=== PATIENT | female | born 1980 | race Caucasian/White ===

== ENCOUNTER 2019-04-29 18:37 | Outpatient (REF) | payer OTHER, SELFPAY ==
[2019-04-29 21:06] LABS: Abs Immature Grans 0.01 k/cumm (0.0-0.09); Absolute Basophil Count 0.05 k/cumm (0.0-0.2); Absolute Lymphocyte Count 2.73 k/cumm (1.2-3.4); Absolute Monocyte Count 0.64 k/cumm (0.11-0.7); Absolute Neutrophil Count 3.58 k/cumm (1.2-6.7); Basophils % 0.7; Eosinophils % 1.4; HCT 38.4 % (36.0-46.0); HGB 13.2 g/dL (12.0-15.5); Immature Grans % 0.1 %; Lymphocytes % 38.4; Mean Corp. HGB Concentration 34.4 g/dL (32.0-36.0); Mean Corpuscular Hemoglobin 32.4 pg (27.0-33.0); Mean Corpuscular Volume 94.3 fL (80-95); Mean Platelet Volume 12.3 fL (8.0-11.0); Neutrophils % 50.4; Platelet Count 290 x1000/uL (130-400); RBC 4.07 m/cumm (4.00-5.20); RBC Distribution Width 12.2 % (11.7-14.6); White Blood Cell Count 7.11 k/cumm (4.4-10.8)
[2019-04-29 21:14] LABS: Iron 100 ug/dL (50-170); Total Iron Binding Capacity 296 ug/dL (250-450); Transferrin Sat 34 % (15-50)
[2019-04-29 21:23] LABS: Anion Gap 9.2 mmol/L (3-11); BUN 12 mg/dL (7-18); CO2 28.8 mmol/L (21.0-32.0); Calcium 8.3 mg/dL (8.5-10.1); Chloride 102 mmol/L (98-107); Glucose 92 mg/dL (74-106); Magnesium 1.8 mg/dL (1.8-2.4); Potassium 3.7 mmol/L (3.5-5.1); Sodium 140 mmol/L (136-145); TSH (W/Ref FT4) 2.07 uIU/mL (0.36-3.74)
== END 2019-04-29 18:57 ==
LOC: NCHCN 18:37
PROVIDERS: Visit Provider Nurse Practitioner Family
DX: Z00.00 Encounter for general adult medical examination without abnormal findings (principal); R53.83 Other fatigue; F41.8 Other specified anxiety disorders; F43.9 Reaction to severe stress, unspecified; G47.9 Sleep disorder, unspecified; J30.2 Other seasonal allergic rhinitis; G47.00 Insomnia, unspecified
CPT/HCPCS: 80048; 83540; 83550; 83735; 84443; 85025

== ENCOUNTER 2020-04-27 16:43 | Outpatient (REF) | payer OTHER, SELFPAY ==
--- NOTE | 2020-04-27 15:30 | SKI_PTH ---
PATIENT: Nayeli Robertson LOC: [facility] U#:[id number] AGE/SX: 40/F ROOM: RE04/27/[address]: Ambrosio Arreola : 1980 BED: DIS: 04/27/2020 SPEC #: [id number] RECD: 04/28/20 12:22 STATUS: ZUNILDA REQ #: [id number] BHASKAR: 04/27/20 15:[address]: Ambrosio Arreola DEPT: Surgical Specimen RECD BY: Arianna Grey ENTERED: 04/28/20 12:23 SP TYPE: SETH GONSALEZ DR: Unknown,Unknown Tissues: 1 - SKIN BIOPSY(SHAVE/PUNCH) Procedures: SKIN LEVEL 4 Comments: [id number]
== END 2020-04-27 16:44 | disposition home or self-care (01) ==
LOC: NCHCN 16:43
PROVIDERS: Visit Provider Family Medicine
DX: L82.0 Inflamed seborrheic keratosis (principal)
CPT/HCPCS: 88305

== ENCOUNTER 2021-05-18 15:05 | Outpatient (REF) | payer OTHER, SELFPAY ==
[2021-05-18 16:18] LABS: Abs Immature Grans 0.01 10^3/uL (0.0-0.06); Absolute Basophil Count 0.02 10^3/uL (0.0-0.2); Absolute Eosinophil Count 0.02 10^3/uL (0.0-0.7); Absolute Lymphocyte Count 1.83 10^3/uL (1.2-3.4); Absolute Monocyte Count 0.57 10^3/uL (0.1-0.8); Absolute Neutrophil Count 0.84 10^3/uL (1.2-6.7); Basophils % 0.6; Eosinophils % 0.6; HGB 13.1 g/dL (11.2-15.7); Immature Grans % 0.3; Lymphocytes % 55.6; MCH 30.1 pg (27.0-33.0); MCHC 32.8 % (32.0-36.0); MPV 12.4 fL (8.0-11.0); Monocytes % 17.3; Neutrophils % 25.6; Nucleated RBC 0 %; Platelet Count 253 10^3/uL (130-400); RBC 4.35 10^6/uL (3.93-5.22); RDW 12.3 % (11.7-14.6); RDW-SD 41.6 fL; WBC 3.29 10^3/uL (4.4-10.8)
[2021-05-18 16:59] LABS: Iron 29 ug/dL (50-170); Total Iron Binding Capacity 343 ug/dL (250-450); Transferrin Sat 8 % (15-50)
[2021-05-18 17:44] LABS: Anion Gap 11.2 mmol/L (3-11); BUN 15 mg/dL (7-18); CO2 27.8 mmol/L (21.0-32.0); CREATININE 0.7 mg/dL (0.55-1.02); Calcium 8.9 mg/dL (8.5-10.1); Chloride 100 mmol/L (98-107); Ferritin 35 ng/mL (8-252); Glucose 87 mg/dL (74-106); Potassium 3.9 mmol/L (3.5-5.1); Sodium 139 mmol/L (136-145); TSH (W/Ref FT4) 0.76 uIU/mL (0.36-3.74); Vitamin B12 554 pg/mL (193-986)
== END 2021-05-18 15:06 | disposition home or self-care (01) ==
LOC: NCHCN 15:05
PROVIDERS: PCP Nurse Practitioner Family; Visit Provider Nurse Practitioner Family
DX: Z00.00 Encounter for general adult medical examination without abnormal findings (principal); R53.83 Other fatigue; F41.8 Other specified anxiety disorders; L65.9 Nonscarring hair loss, unspecified; R43.9 Unspecified disturbances of smell and taste
CPT/HCPCS: 80048; 82607; 82728; 83540; 83550; 84443; 85025

== ENCOUNTER 2021-11-11 17:31 | Outpatient (REF) | payer OTHER, SELFPAY ==
[2021-11-11 18:22] LABS: Abs Immature Grans 0.04 10^3/uL (0.0-0.06); Absolute Basophil Count 0.09 10^3/uL (0.0-0.2); Absolute Eosinophil Count 0.29 10^3/uL (0.0-0.7); Absolute Lymphocyte Count 2.43 10^3/uL (1.2-3.4); Absolute Monocyte Count 0.76 10^3/uL (0.1-0.8); Absolute Neutrophil Count 5.54 10^3/uL (1.2-6.7); Eosinophils % 3.2; HCT 38.4 % (36.0-46.0); HGB 13.4 g/dL (11.2-15.7); Immature Grans % 0.4; Lymphocytes % 26.6; MCH 32.7 pg (27.0-33.0); MCHC 34.9 % (32.0-36.0); MCV 94 fL (80-95); MPV 12.3 fL (8.0-11.0); Monocytes % 8.3; Neutrophils % 60.5; Platelet Count 300 10^3/uL (130-400); RDW 11.9 % (11.7-14.6); RDW-SD 41.6 fL; WBC 9.15 10^3/uL (4.4-10.8)
[2021-11-11 18:34] LABS: Iron 57 ug/dL (50-170); Total Iron Binding Capacity 323 ug/dL (250-450); Transferrin Sat 18 % (15-50)
[2021-11-11 18:42] LABS: Ferritin 34 ng/mL (8-252)
== END 2021-11-11 17:32 | disposition home or self-care (01) ==
LOC: NCHCN 17:31
PROVIDERS: PCP Nurse Practitioner Family; Visit Provider Nurse Practitioner Family
DX: D72.819 Decreased white blood cell count, unspecified
CPT/HCPCS: 82728; 83540; 83550; 85025

== ENCOUNTER 2022-01-25 16:04 | Outpatient (REF) | payer OTHER, SELFPAY ==
[2022-01-25 21:03] LABS: Absolute Basophil Count 0.06 10^3/uL (0.0-0.2); Absolute Eosinophil Count 0.17 10^3/uL (0.0-0.7); Absolute Lymphocyte Count 2.33 10^3/uL (1.2-3.4); Absolute Monocyte Count 0.65 10^3/uL (0.1-0.8); Absolute Neutrophil Count 2.72 10^3/uL (1.2-6.7); Eosinophils % 2.9; HCT 40.7 % (36.0-46.0); HGB 13.8 g/dL (11.2-15.7); Lymphocytes % 39.3; MCH 32.1 pg (27.0-33.0); MCHC 33.9 % (32.0-36.0); MCV 95 fL (80-95); MPV 12.4 fL (8.0-11.0); Neutrophils % 45.8; Platelet Count 305 10^3/uL (130-400); RDW 11.9 % (11.7-14.6); RDW-SD 41.6 fL; WBC 5.93 10^3/uL (4.4-10.8)
[2022-01-25 21:27] LABS: Ferritin 54 ng/mL (8-252); TSH (W/Ref FT4) 1.28 uIU/mL (0.36-3.74)
[2022-01-25 22:15] LABS: Iron 159 ug/dL (50-170); Total Iron Binding Capacity 309 ug/dL (250-450); Transferrin Sat 51 % (15-50)
== END 2022-01-25 16:05 | disposition home or self-care (01) ==
LOC: NCHCN 16:04
PROVIDERS: PCP Nurse Practitioner Family; Visit Provider Nurse Practitioner Family
DX: E61.1 Iron deficiency (principal); R53.83 Other fatigue; D72.819 Decreased white blood cell count, unspecified; L65.9 Nonscarring hair loss, unspecified
CPT/HCPCS: 82728; 83540; 83550; 84443; 85025

== ENCOUNTER 2023-03-07 14:14 | Outpatient (REF) | payer OTHER, SELFPAY ==
--- NOTE | 2023-03-07 12:30 | PAPFT_PTH ---
PATIENT: Nayeli Robertson LOC: [facility] U#:[id number] AGE/SX: 43/F ROOM: RE03/07/[address]: Liza Whyte : 1980 BED: DIS: 03/07/2023 SPEC #: [id number] RECD: 03/08/23 13:08 STATUS: ZUNILDA MONTOYA #: [id number] BHASKAR: 03/07/23 12:[address]: Liza Whyte DEPT: [facility] Cytology RECD BY: Arianna Grey Tissues: 1 - CX/ENDOCX FOR PAP SMEARS Procedures: PAP THIN PREP/[facility] Screening HPV DNA PROBE Comments: [id number]
== END 2023-03-07 14:15 | disposition home or self-care (01) ==
LOC: NCHCN 14:14
PROVIDERS: PCP Nurse Practitioner Family; Visit Provider Nurse Practitioner Family
DX: Z00.00 Encounter for general adult medical examination without abnormal findings (principal); Z01.419 Encounter for gynecological examination (general) (routine) without abnormal findings; Z12.4 Encounter for screening for malignant neoplasm of cervix
CPT/HCPCS: 88142; 87624